=== PATIENT | female | born 1960 | race Two or more races ===

== ENCOUNTER 2019-10-22 13:45 | Emergency (ER) | payer OTHER ==
[~2019-10-22] VITALS: Ht 165.1 cm; Wt 71.7 kg
[~2019-10-22 13:45] MED LIST: LISI-170 PO
--- NOTE | 2019-10-22 14:19 | NUR ---
this is a 59 year old female with previous hx of htn that has not taken medication for some time. pt states she does have primary care with an appointment on the 10 of november. pt here today due to feeling her pulse in her head.
[2019-10-22] MEDS ORDERED: LISINOPRIL 20 MG TABLET PO ONE (14:30)
[2019-10-22] MEDS ORDERED: LISINOPRIL 20 MG TABLET ONE (14:36)
[2019-10-22 14:52] LABS: BASOPHILS # (AUTO) 0.09 x10^3/uL (0-0.1); BASOPHILS % (AUTO) 1 % (0-1); EOSINOPHILS # (AUTO) 0.11 x10^3/uL (0-0.4); EOSINOPHILS % (AUTO) 1 % (1-7); LYMPHOCYTES # (AUTO) 2.15 x10^3/uL (1-3.4); LYMPHOCYTES % (AUTO) 27 % (22-44); MD NO; MEAN CORPUSCULAR HEMOGLOBIN 28.7 pg (27.0-34.8); MEAN CORPUSCULAR HGB CONC 32.3 g/dL (32.4-35.8); MEAN CORPUSCULAR VOLUME 88.9 fL (80-100); MONOCYTES # (AUTO) 0.29 x10^3/uL (0.2-0.8); MONOCYTES % (AUTO) 4 % (2-9); NEUTROPHILS # (AUTO) 5.21 x10^3/uL (1.8-6.8); NEUTROPHILS % (AUTO) 66 % (42-75); PLATELET COUNT 357 x10^3/uL (130-400); RED BLOOD COUNT 4.69 x10^6/uL (3.82-5.3); RED CELL DISTRIBUTION WIDTH 13.9 % (9.6-15.2)
[2019-10-22 14:57] LABS: ANION GAP 6 mmol/L (5-15); CALCIUM 9.3 mg/dL (8.5-10.1); CHLORIDE 110 mmol/L (98-107); CREATININE 0.76 mg/dL (0.55-1.02)
--- NOTE | 2019-10-22 15:17 | NUR ---
BREAK RN: PT STATES SHE FEELS BETTER AFTER MEDS. PT AMBULATED TO RESTROOM WITH STEADY GAIT.
--- NOTE | 2019-10-22 15:23 | NUR ---
BREAK RN: ALL RESULTS ARE BACK AT THIS TIME. CHART UP FOR RECHECK.
[2019-10-22 16:25] VITALS: BP 173/82
== END 2019-10-22 16:28 | disposition home or self-care (01) ==
LOC: ED 14:30
DX: I10 Essential (primary) hypertension (principal); R42 Dizziness and giddiness; R04.0 Epistaxis; R94.31 Abnormal electrocardiogram [ECG] [EKG]
CPT/HCPCS: 36415; 80048; 82040; 85025; 93005; 99284

== ENCOUNTER 2020-04-04 12:23 | Emergency (ER) | payer SELFPAY ==
[~2020-04-04] VITALS: Ht 165.1 cm; Wt 69.0 kg
[2020-04-04 13:31] LABS: BASOPHILS % (AUTO) 1 % (0-1); EOSINOPHILS % (AUTO) 1 % (1-7); LYMPHOCYTES % (AUTO) 24 % (22-44); MEAN CORPUSCULAR HEMOGLOBIN 29.8 pg (27.0-34.8); MEAN CORPUSCULAR HGB CONC 33.7 g/dL (32.4-35.8); MEAN PLATELET VOLUME 8.2 fL (7.4-10.4); MONOCYTES % (AUTO) 6 % (2-9); NEUTROPHILS % (AUTO) 69 % (42-75); PLATELET COUNT 391 x10^3/uL (130-400); RED BLOOD COUNT 4.32 x10^6/uL (3.82-5.3); RED CELL DISTRIBUTION WIDTH 13.4 % (9.6-15.2)
[2020-04-04 13:32] LABS: MD NO
[2020-04-04 13:36] LABS: ANION GAP 8 mmol/L (5-15); CALCIUM 9.1 mg/dL (8.5-10.1); CHLORIDE 99 mmol/L (98-107); CREATININE 0.86 mg/dL (0.55-1.02)
--- NOTE | 2020-04-04 14:58 | NUR ---
PT IN BED WITH NO SIGNS OR SYMPTOMS OF ACUTE DISTRESS NOTED RESPIRATIONS EVEN AND UNLABORED US ONGOING AT BEDSIDE.PT DENIES NEED OR DISCOMFORT AT THIS TIME
--- NOTE | 2020-04-04 15:26 | NUR ---
PT UP TO AMBULATE TO BATHROOM WALKED WITH STEADY GAIT AND GOOD BALANCE DENIES DIZZINESS, PAIN, OR SOB WITH WALKING. PT RETURNED SAFELY TO BED NO SIGNS OR SYMPTOMS OF ACUTE DSITERSS NOTED RESPIRATIONS EVEN AND UNLABORED. NO SIGNS OR SYMPTOMS OF ACUTE DSITRESS NOTED, PT DENIES NEED OR DISCOMFORT AT THIS TIME. PT IN BED WITH RAILS UP BILATERALLY AND CALL LIGHT WITHIN REACH.
[2020-04-04 16:33] VITALS: BP 125/68
== END 2020-04-04 16:37 | disposition home or self-care (01) ==
LOC: ED 14:30
DX: L03.116 Cellulitis of left lower limb (principal)
CPT/HCPCS: 36415; 80048; 85025; 99285